=== PATIENT | male | born 1965 | race Caucasian/White ===

== ENCOUNTER → 2019-06-30 | Outpatient (CLI) | payer BC ==
--- NOTE | 2019-06-30 10:49 | Diagnostic Imaging Report ---
EXAM: CT Chest WITHOUT intravenous contrast 06/30/2019 9:44 AM INDICATION: Lung cancer screening COMPARISON: None TECHNIQUE: Chest was scanned utilizing a multidetector helical scanner from the lung apex through the level of the adrenal glands without administration of IV contrast. Coronal and sagittal reformations were obtained. Low-dose protocol was performed. IV CONTRAST: None RADIATION DOSE: Total DLP: 258.3 mGy*cm. Dose modulation, iterative reconstruction, and/or weight based adjustment of the mA/kV was utilized to reduce the radiation dose to as low as reasonably achievable. COMPLICATIONS: None FINDINGS: LINES/ TUBES: None. LUNGS AND AIRWAYS: The central airways are patent. No focal consolidation or pulmonary edema. Bilateral upper lobe predominant moderate centrilobular and paraseptal emphysema. Tiny cluster of tree-in-bud nodularity at the posterior left lower lobe. No suspicious pulmonary nodules. PLEURA: The pleural spaces are clear. HEART AND MEDIASTINUM: The thyroid gland is normal. No supraclavicular, mediastinal, or hilar lymphadenopathy. The heart is not enlarged. No pericardial effusion. The main pulmonary artery is not enlarged. UPPER ABDOMEN: Limited non-contrast views of the upper abdomen show no abnormality within the visualized liver, spleen, pancreas, or kidneys. The adrenal glands are normal. BONES: The visualized bony thorax is within normal limits. SOFT TISSUES: Unremarkable. IMPRESSION: Moderate upper lobe predominant centrilobular and paraseptal emphysema. No suspicious pulmonary nodules. Tiny cluster of tree-in-bud nodularity at the posterior left lower lobe, most likely inflammatory or post infectious. Signed by: Mary Sousa MD on 06/30/2019 10:45 AM
== END ==
LOC: CT 09:37
PROVIDERS: ATTEND Family Medicine
DX: Z12.2 Encounter for screening for malignant neoplasm of respiratory organs (principal)
CPT/HCPCS: 71250